=== PATIENT | female | born 1955 | race American Indian/Alaskan Native ===

== ENCOUNTER 2019-10-12 14:23 | Inpatient (IN) | payer OTHER ==
[2019-10-12] MEDS ORDERED: methylPREDNISolone Sod Succinate 125 MG/2 ML INJ IV ONE (14:33)
[2019-10-12] MEDS ORDERED: MAGNESIUM SULFATE 2 GM/50 ML BAG IV ONE (14:33)
[2019-10-12] MEDS ORDERED: IPRATROPIUM/ALBUTEROL SULFATE 3 ML AMPUL.NEB IH ONE (14:33)
--- NOTE | 2019-10-12 15:05 | XRay Report ---
CHEST 1 VIEW INDICATION: hypertension. COMPARISON: None. FINDINGS: Support devices: None. Heart: Normal. Lungs/Pleura: No acute pulmonary or pleural findings. IMPRESSION: 1. No acute findings. Signer Name: Kirby Mayo MD Signed: 10/12/2019 3:01 PM Workstation Name: [id number]
[2019-10-12 15:15] LABS: ABG Base Excess 2.2 mmol/L (-2.0-3.0); ABG HCO3 28.6 mmol/L (20.0-26.0); ABG Methemoglobin 0.7 % (0.0-1.5); ABG Oxygen Saturation 99.1 % (95.0-99.0); ABG PCO2 51.4 mm Hg; ABG PH 7.363 pH Units (7.350-7.450); ABG PO2 181.5 mm Hg (80.0-90.0)
--- NOTE | 2019-10-12 15:20 | Emergency Department Report ---
ED General Adult HPI - General Chief complaint: Adult Asthma Stated complaint: ASTHMA Time Seen by Provider: 10/12/19 14:33 Source: patient Mode of arrival: Ambulatory Limitations: No Limitations - History of Present Illness Initial comments: This is a 64-year old female who has had chronic lung disease for only about 2 years. She seems to be stating although her history is a bit limited due to her respiratory distress that she was intubated more than a year ago at [facility]. She states that she is only had wheezing for about 2 years. Recently she has not been responding to home nebs. She is on 2 L of home oxygen. She states that she was referred to a architect naval by [facility] but could not afford ongoing care. She does not know specifically if she has sarcoid or another type of chronic lung disease. She states she has never been a smoker. She has no prior history of asthma. She is not currently on steroids. She has a history of hypertension and states she is on lisinopril and 2 other medicines. She does not report any history of heart disease. Patient does report to me that she was diagnosed as having COVID infection in August. She states she was never hospitalized. -: Gradual, hour(s) Severity scale (0 -10): 0 Associated Symptoms: denies other symptoms, cough, shortness of breath Treatments Prior to Arrival: other (Home nebs) - Related Data Allergies Allergy/AdvReac Type Severity Reaction Status Date / Time No Known Allergies Allergy Unverified 10/12/19 14:23 ED Review of Systems ROS: Stated complaint: ASTHMA Other details as noted in HPI Constitutional: denies: chills, fever Eyes: denies: eye pain, eye discharge, vision change ENT: denies: ear pain, throat pain Respiratory: cough (States white mucus), shortness of breath, wheezing Cardiovascular: denies: chest pain, palpitations Endocrine: no symptoms reported Gastrointestinal: denies: abdominal pain, nausea, diarrhea Genitourinary: denies: urgency, dysuria, discharge Musculoskeletal: denies: back pain, joint swelling, arthralgia Skin: denies: rash, lesions Neurological: denies: headache, weakness, paresthesias Psychiatric: denies: anxiety, depression Hematological/Lymphatic: denies: easy bleeding, easy bruising ED Past Medical Hx - Past Medical History Hx Asthma: Yes - Surgical History Past Surgical History?: No - Social History Smoking Status: Never Smoker Substance Use Type: None ED Physical Exam - General Limitations: Physical Limitation General appearance: cachectic (Somewhat), other (Mild to moderate respiratory distress) - Head Head exam: Present: atraumatic, normocephalic - Eye Eye exam: Present: normal appearance. Absent: scleral icterus - ENT ENT exam: Present: mucous membranes moist - Neck Neck exam: Present: normal inspection - Respiratory Respiratory exam: Present: wheezes (Bilateral), accessory muscle use, decreased breath sounds. Absent: respiratory distress - Cardiovascular Cardiovascular Exam: Present: regular rate, normal rhythm. Absent: systolic murmur, diastolic murmur, rubs, gallop - GI/Abdominal GI/Abdominal exam: Present: soft, normal bowel sounds. Absent: distended, tenderness, guarding, rebound, rigid - Extremities Exam Extremities exam: Present: normal inspection. Absent: pedal edema, joint swelling, calf tenderness - Back Exam Back exam: Present: normal inspection - Neurological Exam Neurological exam: Present: alert, oriented X3, CN II-XII intact. Absent: motor sensory deficit - Psychiatric Psychiatric exam: Present: normal mood, anxious (Mildly) - Skin Skin exam: Present: warm, dry, intact, normal color. Absent: rash ED Course Vital Signs 10/12/19 10/12/19 10/12/19 14:31 14:46 15:00 Pulse Rate 122 H 107 H Respiratory 26 H 18 Rate Blood Pressure 114/65 Blood Pressure 150/77 [Left] O2 Sat by Pulse 100 100 98 Oximetry 10/12/19 15:31 Pulse Rate 108 H Respiratory 21 Rate Blood Pressure 114/65 Blood Pressure [Left] O2 Sat by Pulse 100 Oximetry - Reevaluation(s) Reevaluation #1: Patient improving with nebs. 10/12/19 15:26 Reevaluation #2: Blood gas consistent with hypercapnic respiratory failure PCO2 of 51 pH of 7.36 PO2 182 on supplemental FiO2 approximately 40%. Patient will be placed on BiPAP. She is improving with nebs however. I would be concerned that she would be at risk for tiring. Patient states that she has never been on CPAP. However she tells me that she thinks she might need a "mask". 10/12/19 15:28 Reevaluation #3: Patient with remarkable improvement. BiPAP was ordered. However at this point it does not look on reassessment it is necessary now. I will leave it as a PRN order. I do think the patient will need BiPAP or CPAP at night. We will leave it up to the hospitalist. She will be admitted. 10/12/19 15:34 ED Medical Decision Making - Lab Data Result diagrams: 10/12/19 15:07 Laboratory Results - last 24 hr 10/12/19 10/12/19 14:50 15:07 WBC 9.3 RBC 4.81 Hgb 14.7 H Hct 45.0 H MCV 94 MCH 31 MCHC 33 RDW 13.6 Plt Count 345 Lymph % (Auto) 18.3 [place] % (Auto) 9.1 H Eos % (Auto) 5.3 H Baso % (Auto) 0.5 Lymph # 1.7 [place] # 0.9 H Eos # 0.5 H Baso # 0.0 Seg Neutrophils % 66.8 Seg Neutrophils # 6.2 ABG pH 7.363 ABG pCO2 51.4 ABG pO2 181.5 H ABG HCO3 28.6 H ABG O2 Saturation 99.1 H ABG O2 Content 20.1 ABG Base Excess 2.2 ABG Hemoglobin 14.5 ABG Carboxyhemoglobin 1.9 ABG Methemoglobin 0.7 Oxyhemoglobin 96.6 FiO2 40 Other labs pending. Defer to hospitalist - EKG Data -: EKG Interpreted by Me EKG shows normal: sinus rhythm, axis, intervals, QRS complexes, ST-T waves Rate: tachycardia - EKG Data Interpretation: no acute changes (No acute ischemic changes) - Radiology Data Radiology results: report reviewed (Chest x-ray no acute process), image reviewed Laboratory Results - last 24 hr 10/12/19 14:50 ABG pH 7.363 ABG pCO2 51.4 ABG pO2 181.5 H ABG HCO3 28.6 H ABG O2 Saturation 99.1 H ABG O2 Content 20.1 ABG Base Excess 2.2 ABG Hemoglobin 14.5 ABG Carboxyhemoglobin 1.9 ABG Methemoglobin 0.7 Oxyhemoglobin 96.6 FiO2 40 Critical Care Time: Yes Critical care time in (mins) excluding proc time.: 45 Critical care attestation.: If time is entered above; I have spent that time in minutes in the direct care of this critically ill patient, excluding procedure time. ED Disposition Clinical Impression: Status asthmaticus Qualifiers: Asthma severity: moderate Asthma persistence: persistent Qualified Code(s): J45.42 - Moderate persistent asthma with status asthmaticus Hypercapnic respiratory failure Qualifiers: Chronicity: acute on chronic Qualified Code(s): J96.22 - Acute and chronic respiratory failure with hypercapnia Disposition: OP ADMIT IP TO THIS HOSP Is pt being admited?: Yes Does the pt Need Aspirin: Yes Condition: Stable
[2019-10-12] MEDS ORDERED: SODIUM CHLORIDE 0.9% 1000 ML 1,000 ML IV ONE (15:27)
[2019-10-12] MEDS ORDERED: ALBUTEROL 2.5 MG/3 ML NEBU IH ONE (15:27)
[2019-10-12] MEDS ORDERED: ASPIRIN 81 MG TAB CHEW PO ONE (15:29)
[2019-10-12 15:52] LABS: Basophils % (Auto) 0.5 % (0.0-1.8); Eosinophils # (Auto) 0.5 K/mm3 (0.0-0.4); Eosinophils % (Auto) 5.3 % (0.0-4.3); Hemoglobin 14.7 gm/dl (10.1-14.3); Lymphocytes # (Auto) 1.7 K/mm3 (1.2-5.4); Lymphocytes % (Auto) 18.3 % (13.4-35.0); Mean Corpuscular HGB Conc 33 % (30-34); Mean Corpuscular Volume 94 fl (79-97); Monocytes # (Auto) 0.9 K/mm3 (0.0-0.8); Monocytes % (Auto) 9.1 % (0.0-7.3); Platelet Count 345 K/mm3 (140-440); Red Blood Count 4.81 M/mm3 (3.65-5.03); Red Cell Distribution Width 13.6 % (13.2-15.2)
[2019-10-12] MEDS ORDERED: AZITHROMYCIN 500 MG in SODIUM CHLORIDE 0.9% 250ML 250 ML IV ONE (16:00)
[2019-10-12 16:10] LABS: Alanine Aminotransferase 12 units/L (7-56); Albumin 4.2 g/dL (3.9-5); BUN/Creatinine Ratio 17; Bilirubin,Direct < 0.2 mg/dL (0-0.2); Blood Urea Nitrogen 15 mg/dL (7-17); Calcium 9.9 mg/dL (8.4-10.2); Hemolysis Index 7
[2019-10-12] MEDS ORDERED: DOCUSATE SODIUM 100 MG CAP PO PRN (16:10)
[2019-10-12] MEDS ORDERED: ONDANSETRON 4 MG/2 ML INJ IV PRN (16:10)
[2019-10-12 16:13] LABS: INR 1.02 (0.87-1.13); Partial Thromboplastin Time 23.7 Sec. (24.2-36.6)
--- NOTE | 2019-10-12 16:59 | Progress Note ---
Subjective Date of service: 10/12/19 Interval history: Mandi Roberto is a 64-year old female who has history of asthma for the past 10 years and history of hypertension. Presents to the ED with complaints of worsening shortness of breath and severe dry cough for the past 2 days.. Recently she has not been responding to home nebulization treatments. She is on 2 L of home oxygen. She states that she was referred to a devil dog by [facility] but could not afford ongoing care. She stated that she was on respirator 1 year ago at [facility]. At the time of my evaluation patient is on BiPAP. She states that she quit smoking more than 20 years ago. 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 She was first diagnosed with asthma about 10 years ago. she has a history of hypertension and states she is on lisinopril and 2 other medicines. She does not report any history of heart disease. In the ED patient was found to be severely dyspneic was given continuous neb treatments without significant improvement, was placed on BiPAP machine and she is being admitted for status asthmaticus Objective - Constitutional Vitals: Vital Signs - 12hr 10/12/19 10/12/19 10/12/19 14:31 14:46 15:00 Pulse Rate 122 H 107 H Respiratory 26 H 18 Rate Blood Pressure 114/65 Blood Pressure 150/77 [Left] O2 Sat by Pulse 100 100 98 Oximetry 10/12/19 10/12/19 15:31 16:09 Pulse Rate 108 H 96 H Respiratory 21 17 Rate Blood Pressure 114/65 Blood Pressure [Left] O2 Sat by Pulse 100 100 Oximetry - Labs CBC & Chem 7: 10/12/19 15:07 10/12/19 15:07 Labs: Abnormal lab results 10/12/19 10/12/19 10/12/19 Range/Units 14:50 15:07 15:07 Hgb 14.7 H (10.1-14.3) gm/dl Hct 45.0 H (30.3-42.9) % [place] % (Auto) 9.1 H (0.0-7.3) % Eos % (Auto) 5.3 H (0.0-4.3) % [place] # 0.9 H (0.0-0.8) K/mm3 Eos # 0.5 H (0.0-0.4) K/mm3 APTT (24.2-36.6) Sec. ABG pO2 181.5 H (80.0-90.0) mm Hg ABG HCO3 28.6 H (20.0-26.0) mmol/L ABG O2 Saturation 99.1 H (95.0-99.0) % Glucose 116 H (65-100) mg/dL Magnesium (1.7-2.3) mg/dL 10/12/19 10/12/19 Range/Units 15:07 15:07 Hgb (10.1-14.3) gm/dl Hct (30.3-42.9) % [place] % (Auto) (0.0-7.3) % Eos % (Auto) (0.0-4.3) % [place] # (0.0-0.8) K/mm3 Eos # (0.0-0.4) K/mm3 APTT 23.7 L (24.2-36.6) Sec. ABG pO2 (80.0-90.0) mm Hg ABG HCO3 (20.0-26.0) mmol/L ABG O2 Saturation (95.0-99.0) % Glucose (65-100) mg/dL Magnesium 3.90 H (1.7-2.3) mg/dL HEART Score - HEART Score Troponin: Troponin T < 0.010 ng/mL (0.00-0.029) 10/12/19 15:07
[2019-10-12] MEDS ORDERED: methylPREDNISolone Sod Suc 40 MG in SODIUM CHLORIDE 0.9% 100 ML IV SCH (17:00)
[2019-10-12] MEDS ORDERED: D5W/0.45% NACL 1,000 ML IV SCH (17:00)
--- NOTE | 2019-10-12 17:06 | History and Physical Report ---
History of Present Illness Date of examination: 10/12/19 Date of admission: 10/12/19 15:29 Chief complaint: Worsening cough and shortness of breath for 2 days History of present illness: Mandi Roberto is a 64-year old female who has history of asthma for the past 10 years and history of hypertension. Presents to the ED with complaints of worsening shortness of breath and severe dry cough for the past 2 days.. Recently she has not been responding to home nebulization treatments. She is on 2 L of home oxygen. She states that she was referred to a information engineer by [facility] but could not afford ongoing care. She stated that she was on respirator 1 year ago at [facility]. At the time of my evaluation patient is on BiPAP. She states that she quit smoking more than 20 years ago. 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 She was first diagnosed with asthma about 10 years ago. she has a history of hypertension and states she is on lisinopril and 2 other medicines. She does not report any history of heart disease. In the ED patient was found to be severely dyspneic was given continuous neb treatments without significant improvement, was placed on BiPAP machine and she is being admitted for status asthmaticus Past History Past Medical History: hypertension, other (Asthma) Past Surgical History: No surgical history Social history: no significant social history, smoking (She quit smoking more than 20 years ago) Family history: diabetes, hypertension Medications and Allergies Allergies Allergy/AdvReac Type Severity Reaction Status Date / Time No Known Allergies Allergy Unverified 10/12/19 14:23 Active Meds: Active Medications Acetaminophen (Tylenol) 650 mg PO Q6H PRN PRN Reason: Pain MILD(1-3)/Fever >100.5/PIPER Albuterol/Ipratropium (Duoneb *Not For Prn Use*) 1 ampul IH Q4HRT DAYO Arformoterol Tartrate (Brovana Nebu) 15 mcg IH Q12HRT DAYO Budesonide (Pulmicort) 0.5 mg IH Q12HRT DAYO Docusate Sodium (Colace) 100 mg PO BID PRN PRN Reason: Constipation Heparin Sodium (Porcine) (Heparin) 5,000 unit SUB-Q Q8HR DAYO Sodium Chloride (Nacl 0.9% 1000 Ml) 1,000 mls @ 125 mls/hr IV ONCE ONE Stop: 10/12/19 23:26 Last Admin: 10/12/19 16:05 Dose: 125 mls/hr Documented by: Dextrose/Sodium Chloride (D5/0.45ns) 1,000 mls @ 75 mls/hr IV DIRECT DAYO Methylprednisolone Sodium Succinate 40 mg/ Sodium Chloride 100 mls @ 200 mls/hr IV Q8H [facility] Ondansetron HCl (Zofran) 4 mg IV Q8H PRN PRN Reason: Nausea And Vomiting Pantoprazole Sodium (Protonix) 40 mg PO DAILY DAYO Sodium Chloride (Sodium Chloride Flush Syringe 10 Ml) 10 ml IV BID DAYO Sodium Chloride (Sodium Chloride Flush Syringe 10 Ml) 10 ml IV PRN PRN PRN Reason: LINE FLUSH Review of Systems Constitutional: no weight loss, no fever, no chills, no weakness Ears, nose, mouth and throat: no ear pain, no sore throat, no headache Cardiovascular: shortness of breath, high blood pressure, no chest pain, no orthopnea, no palpitations Respiratory: cough (Dry), shortness of breath, no congestion Gastrointestinal: no abdominal pain, no nausea, no vomiting, no diarrhea, no constipation, no melena Menstruation: postmenopausal Rectal: no pain Musculoskeletal: no neck stiffness, no low back pain Integumentary: no rash Neurological: no head injury Psychiatric: no anxiety, no depression Exam - Constitutional Vitals: Temp Pulse Resp BP Pulse Ox 96 H 17 114/65 100 10/12/19 16:09 10/12/19 16:09 10/12/19 15:31 10/12/19 16:09 General appearance: Present: mild distress, well-nourished - EENT Eyes: Present: PERRL, EOM intact ENT: hearing intact, clear oral mucosa - Neck Neck: Present: supple, normal ROM - Respiratory Respiratory effort: labored Respiratory: bilateral: diminished, negative: rales, rhonchi - Cardiovascular Rhythm: regular Heart Sounds: Present: S1 & S2 (Tachycardia) - Extremities Extremities: No edema - Abdominal General gastrointestinal: Present: soft, non-tender. Absent: hepatomegaly, splenomegaly - Rectal Rectal Exam: deferred - Integumentary Integumentary: Present: clear - Musculoskeletal Musculoskeletal: strength equal bilaterally - Psychiatric Psychiatric: appropriate mood/affect - Neurologic Neurologic: CNII-XII intact, no focal deficits HEART Score - HEART Score Troponin: Troponin T < 0.010 ng/mL (0.00-0.029) 10/12/19 15:07 Results - Labs CBC & Chem 7: 10/12/19 15:07 10/12/19 15:07 Labs: Abnormal lab results 10/12/19 10/12/19 10/12/19 Range/Units 14:50 15:07 15:07 Hgb 14.7 H (10.1-14.3) gm/dl Hct 45.0 H (30.3-42.9) % [place] % (Auto) 9.1 H (0.0-7.3) % Eos % (Auto) 5.3 H (0.0-4.3) % [place] # 0.9 H (0.0-0.8) K/mm3 Eos # 0.5 H (0.0-0.4) K/mm3 APTT (24.2-36.6) Sec. ABG pO2 181.5 H (80.0-90.0) mm Hg ABG HCO3 28.6 H (20.0-26.0) mmol/L ABG O2 Saturation 99.1 H (95.0-99.0) % Glucose 116 H (65-100) mg/dL Magnesium (1.7-2.3) mg/dL 10/12/19 10/12/19 Range/Units 15:07 15:07 Hgb (10.1-14.3) gm/dl Hct (30.3-42.9) % [place] % (Auto) (0.0-7.3) % Eos % (Auto) (0.0-4.3) % [place] # (0.0-0.8) K/mm3 Eos # (0.0-0.4) K/mm3 APTT 23.7 L (24.2-36.6) Sec. ABG pO2 (80.0-90.0) mm Hg ABG HCO3 (20.0-26.0) mmol/L ABG O2 Saturation (95.0-99.0) % Glucose (65-100) mg/dL Magnesium 3.90 H (1.7-2.3) mg/dL Assessment and Plan - Patient Problems (1) Status asthmaticus Current Visit: Yes Status: Acute Qualifiers: Asthma severity: moderate Asthma persistence: persistent Qualified C ode(s): J45.42 - Moderate persistent asthma with status asthmaticus Plan to address problem: Patient failed aggressive continuous neb treatments with albuterol solution We will admit the patient to IMCU as the patient is on BiPAP Start the patient on intravenous steroids, aggressive neb treatments with DuoNeb solution, Pulmicort and Brovana solutions Chest x-ray reviewed We will consult information engineer Empiric IV antibiotic although there is no focus of infection (2) Hypertension Current Visit: Yes Status: Chronic Qualifiers: Hypertension type: essential hypertension Qualified Code(s): I10 - Essential (primary) hypertension Plan to address problem: Patient is unclear about her medications We will start the patient on lisinopril for now and monitor blood pressure (3) Respiratory failure with hypoxia and hypercapnia Current Visit: Yes Status: Acute Plan to address problem: Patient has history of being on ventilator 1 year ago ABG on 40% FiO2 results reviewed Continue BiPAP for now and hopefully to be weaned off Pulmonary consult Aggressive neb treatments and IV steroids
[2019-10-12] MEDS: ARFORMOTEROL 15 MCG/2 ML NEBU IH SCH (20:13)
[2019-10-12] MEDS: IPRATROPIUM/ALBUTEROL SULFATE 3 ML AMPUL.NEB IH SCH ×2 (20:14→23:01)
[2019-10-12] MEDS: BUDESONIDE 0.5 MG/2 ML NEBU IH SCH (20:14)
[2019-10-12] MEDS: guaiFENesin 100 MG/5 ML ORAL LIQD PO PRN (23:25)
[2019-10-12] MEDS: TEMAZEPAM 15 MG CAP PO PRN (23:25)
[2019-10-12] MEDS: HEPARIN 5,000 UNIT/1 ML VIAL SUB-Q SCH (23:25)
[2019-10-12] MEDS: methylPREDNISolone Sod Succinate 40 MG/1 ML INJ IV SCH (23:25)
[2019-10-13] MEDS: IPRATROPIUM/ALBUTEROL SULFATE 3 ML AMPUL.NEB IH SCH ×6 (04:12→20:22)
[2019-10-13 05:27] LABS: Hematocrit 40.3 % (30.3-42.9); Hemoglobin 13.1 gm/dl (10.1-14.3); Mean Corpuscular HGB Conc 33 % (30-34); Mean Corpuscular Volume 94 fl (79-97); Platelet Count 300 K/mm3 (140-440); Red Blood Count 4.31 M/mm3 (3.65-5.03); Red Cell Distribution Width 13.5 % (13.2-15.2)
[2019-10-13 05:48] LABS: Blood Urea Nitrogen 21 mg/dL (7-17); Calcium 9.1 mg/dL (8.4-10.2); Hemolysis Index 5
[2019-10-13 06:00] LABS: BUN/Creatinine Ratio 30
[2019-10-13] MEDS: HEPARIN 5,000 UNIT/1 ML VIAL SUB-Q SCH ×3 (06:26→22:45)
[2019-10-13] MEDS: methylPREDNISolone Sod Succinate 40 MG/1 ML INJ IV SCH ×3 (06:26→22:46)
[2019-10-13 08:18] LABS: Anisocytosis Few; Basophils % (Manual) 0 % (0.0-1.8); Eosinophils % (Manual) 0 % (0.0-4.3); Monocytes % (Manual) 0 % (0.0-7.3); Total Cells Counted 100
[2019-10-13 08:19] LABS: Ovalocytes Few; Platelet Estimate Consistent w Auto; Poikilocytosis Few
[2019-10-13] MEDS: PANTOPRAZOLE 40 MG TAB PO SCH (09:18)
--- NOTE | 2019-10-13 10:32 | Progress Note ---
Assessment and Plan Assessment and plan: Mandi Roberto is a 64-year old female who has history of asthma for the past 10 years and history of hypertension. Presents to the ED with complaints of worsening shortness of breath and severe dry cough for the past 2 days. Recently she has not been responding to home nebulization treatments. She is on 2 L of home oxygen. She states that she was referred to a information assurance engineer by [facility] but could not afford ongoing care. She stated that she was on respirator 1 year ago at [facility]. At the time of my evaluation patient is on BiPAP. She states that she quit smoking more than 20 years ago. 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 She was first diagnosed with asthma about 10 years ago. she has a history of hypertension and states she is on lisinopril and 2 other medicines. She does not report any history of heart disease. In the ED patient was found to be severely dyspneic was given continuous neb treatments without significant improvement, was placed on BiPAP machine and she is being admitted for status asthmaticus 10/12: Patient seen and examined today clinically improving. Still with significant shortness of breath following speaking and goes into a coughing spell. We will continue steroids. Await pulmonary input. Will keep in IMCU for now unless otherwise stated by information assurance engineer. Discussed with excellent nursing staff the patient has today. Acute respiratory hypoxic and hypercapnic failure secondary to status asthma ticus Asthma with acute exacerbation Prior history of intubation Hypertension Plan Continue patient on intravenous steroids, aggressive neb treatments with DuoNeb solution, Pulmicort and Brovana solutions Chest x-ray reviewed information assurance engineer consulted Empiric IV antibiotic although there is no focus of infection DVT and GI prophylaxis Plan of care discussed with the patient by nursing staff. History Interval history: Patient seen and examined reports some improvement although still with expiratory wheeze and speech induced coughing spells. Hospitalist Physical - Physical exam Narrative exam: VITAL SIGNS: Reviewed. GENERAL: The patient appears normally developed still with mild respiratory distress on exertion, Vital signs as documented. HEAD: No signs of head trauma. EYES: Pupils are equal. Extraocular motions intact. EARS: Hearing grossly intact. MOUTH: Oropharynx is normal. NECK: No adenopathy, no JVD. CHEST: Chest with expiratory wheezing breath sounds bilaterally. No rales, or rhonchi. CARDIAC: Regular rate and rhythm. S1 and S2, without murmurs, gallops, or rubs. VASCULAR: No Edema. Peripheral pulses normal and equal in all extremities. ABDOMEN: Soft, non tender and non distended. No rebound or guarding, and no masses palpated. Bowel Sounds normal. MUSCULOSKELETAL: Good range of motion of all major joints. Extremities without clubbing, cyanosis or edema. NEUROLOGIC EXAM: Alert and oriented x 3 No focal sensory or strength d eficits. Speech normal except followed by intermittent coughing spell. Follows commands. PSYCHIATRIC: Mood normal. SKIN: detail exam as documented in skin assessment - Constitutional Vitals: Temp Pulse Resp BP Pulse Ox 97.7 F 94 H 17 140/61 99 10/13/19 08:00 10/13/19 08:00 10/13/19 08:00 10/13/19 08:00 10/13/19 08:00 General appearance: Present: mild distress, well-nourished HEART Score - HEART Score Troponin: Troponin T < 0.010 ng/mL (0.00-0.029) 10/12/19 15:07 Results - Labs CBC & Chem 7: 10/13/19 04:29 10/13/19 04:29 Labs: Laboratory Last Values WBC 7.5 K/mm3 (4.5-11.0) 10/13/19 04:29 RBC 4.31 M/mm3 (3.65-5.03) 10/13/19 04:29 Hgb 13.1 gm/dl (10.1-14.3) 10/13/19 04:29 Hct 40.3 % (30.3-42.9) 10/13/19 04:29 MCV 94 fl (79-97) 10/13/19 04:29 MCH 30 pg (28-32) 10/13/19 04:29 MCHC 33 % (30-34) 10/13/19 04:29 RDW 13.5 % (13.2-15.2) 10/13/19 04:29 Plt Count 300 K/mm3 (140-440) 10/13/19 04:29 Lymph % (Auto) 18.3 % (13.4-35.0) 10/12/19 15:07 [place] % (Auto) 9.1 % (0.0-7.3) H 10/12/19 15:07 Eos % (Auto) 5.3 % (0.0-4.3) H 10/12/19 15:07 Baso % (Auto) 0.5 % (0.0-1.8) 10/12/19 15:07 Lymph # 1.7 K/mm3 (1.2-5.4) 10/12/19 15:07 [place] # 0.9 K/mm3 (0.0-0.8) H 10/12/19 15:07 Eos # 0.5 K/mm3 (0.0-0.4) H 10/12/19 15:07 Baso # 0.0 K/mm3 (0.0-0.1) 10/12/19 15:07 Add Manual Diff Complete 10/13/19 04:29 Total Counted 100 10/13/19 04:29 Seg Neutrophils % Patent Clerk 10/13/19 04:29 Seg Neuts % (Manual) 96.0 % (40.0-70.0) H 10/13/19 04:29 Band Neutrophils % 0 % 10/13/19 04:29 Lymphocytes % (Manual) 4.0 % (13.4-35.0) L 10/13/19 04:29 Reactive Lymphs % (Man) 0 % 10/13/19 04:29 Monocytes % (Manual) 0 % (0.0-7.3) 10/13/19 04:29 Eosinophils % (Manual) 0 % (0.0-4.3) 10/13/19 04:29 Basophils % (Manual) 0 % (0.0-1.8) 10/13/19 04:29 Metamyelocytes % 0 % 10/13/19 04:29 Myelocytes % 0 % 10/13/19 04:29 Promyelocytes % 0 % 10/13/19 04:29 Blast Cells % 0 % 10/13/19 04:29 Nucleated RBC % Not Reportable 10/13/19 04:29 Seg Neutrophils # 6.2 K/mm3 (1.8-7.7) 10/12/19 15:07 Seg Neutrophils # Man 7.2 K/mm3 (1.8-7.7) 10/13/19 04:29 Band Neutrophils # 0.0 K/mm3 10/13/19 04:29 Lymphocytes # (Manual) 0.3 K/mm3 (1.2-5.4) L 10/13/19 04:29 Abs React Lymphs (Man) 0.0 K/mm3 10/13/19 04:29 Monocytes # (Manual) 0.0 K/mm3 (0.0-0.8) 10/13/19 04:29 Eosinophils # (Manual) 0.0 K/mm3 (0.0-0.4) 10/13/19 04:29 Basophils # (Manual) 0.0 K/mm3 (0.0-0.1) 10/13/19 04:29 Metamyelocytes # 0.0 K/mm3 10/13/19 04:29 Myelocytes # 0.0 K/mm3 10/13/19 04:29 Promyelocytes # 0.0 K/mm3 10/13/19 04:29 Blast Cells # 0.0 K/mm3 10/13/19 04:29 WBC Morphology Not Reportable 10/13/19 04:29 Hypersegmented Neuts Not Reportable 10/13/19 04:29 Hyposegmented Neuts Not Reportable 10/13/19 04:29 Hypogranular Neuts Not Reportable 10/13/19 04:29 Smudge Cells Not Reportable 10/13/19 04:29 Toxic Granulation Not Reportable 10/13/19 04:29 Toxic Vacuolation Not Reportable 10/13/19 04:29 Dohle Bodies Not Reportable 10/13/19 04:29 Pelger-Huet Anomaly Not Reportable 10/13/19 04:29 Theresa Rods Not Reportable 10/13/19 04:29 Platelet Estimate Consistent w auto 10/13/19 04:29 Clumped Platelets Not Reportable 10/13/19 04:29 Plt Clumps, EDTA Not Reportable 10/13/19 04:29 Large Platelets Not Reportable 10/13/19 04:29 Giant Platelets Not Reportable 10/13/19 04:29 Platelet Satelliting Not Reportable 10/13/19 04:29 Plt Morphology Comment Not Reportable 10/13/19 04:29 RBC Morphology Not Reportable 10/13/19 04:29 Dimorphic RBCs Not Reportable 10/13/19 04:29 Polychromasia Not Reportable 10/13/19 04:29 Hypochromasia Not Reportable 10/13/19 04:29 Poikilocytosis Few 10/13/19 04:29 Anisocytosis Few 10/13/19 04:29 Microcytosis Not Reportable 10/13/19 04:29 Macrocytosis Not Reportable 10/13/19 04:29 Spherocytes Not Reportable 10/13/19 04:29 Pappenheimer Bodies Not Reportable 10/13/19 04:29 Sickle Cells Not Reportable 10/13/19 04:29 Target Cells Not Reportable 10/13/19 04:29 Tear Drop Cells Not Reportable 10/13/19 04:29 Ovalocytes Few 10/13/19 04:29 Helmet Cells Not Reportable 10/13/19 04:29 Jay-Axson Bodies Not Reportable 10/13/19 04:29 King Rings Not Reportable 10/13/19 04:29 Kevin Cells Not Reportable 10/13/19 04:29 Bite Cells Not Reportable 10/13/19 04:29 Crenated Cell Not Reportable 10/13/19 04:29 Elliptocytes Not Reportable 10/13/19 04:29 Acanthocytes (Spur) Not Reportable 10/13/19 04:29 Rouleaux Not Reportable 10/13/19 04:29 Hemoglobin C Crystals Not Reportable 10/13/19 04:29 Schistocytes Not Reportable 10/13/19 04:29 Malaria parasites Not Reportable 10/13/19 04:29 Akhil Bodies Not Reportable 10/13/19 04:29 Hem Pathologist Commnt No 10/13/19 04:29 PT 13.6 Sec. (12.2-14.9) 10/12/19 15:07 INR 1.02 (0.87-1.13) 10/12/19 15:07 APTT 23.7 Sec. (24.2-36.6) L 10/12/19 15:07 ABG pH 7.363 pH Units (7.350-7.450) 10/12/19 14:50 ABG pCO2 51.4 mm Hg 10/12/19 14:50 ABG pO2 181.5 mm Hg (80.0-90.0) H 10/12/19 14:50 ABG HCO3 28.6 mmol/L (20.0-26.0) H 10/12/19 14:50 ABG O2 Saturation 99.1 % (95.0-99.0) H 10/12/19 14:50 ABG O2 Content 20.1 (0.0-44) 10/12/19 14:50 ABG Base Excess 2.2 mmol/L (-2.0-3.0) 10/12/19 14:50 ABG Hemoglobin 14.5 gm/dl (12.0-16.0) 10/12/19 14:50 ABG Carboxyhemoglobin 1.9 % (0.0-5.0) 10/12/19 14:50 ABG Methemoglobin 0.7 % (0.0-1.5) 10/12/19 14:50 Oxyhemoglobin 96.6 % (95.0-99.0) 10/12/19 14:50 FiO2 40 % 10/12/19 14:50 Sodium 140 mmol/L (137-145) 10/13/19 04:29 Potassium 4.4 mmol/L (3.6-5.0) 10/13/19 04:29 Chloride 102.7 mmol/L (98-107) 10/13/19 04:29 Carbon Dioxide 24 mmol/L (22-30) 10/13/19 04:29 Anion Gap 18 mmol/L 10/13/19 04:29 BUN 21 mg/dL (7-17) H 10/13/19 04:29 Creatinine 0.7 mg/dL (0.6-1.2) 10/13/19 04:29 Estimated GFR > 60 ml/min 10/13/19 04:29 BUN/Creatinine Ratio 30 % 10/13/19 04:29 Glucose 160 mg/dL (65-100) H 10/13/19 04:29 Calcium 9.1 mg/dL (8.4-10.2) 10/13/19 04:29 Magnesium 3.90 mg/dL (1.7-2.3) H 10/12/19 15:07 Total Bilirubin 0.40 mg/dL (0.1-1.2) 10/12/19 15:07 Direct Bilirubin < 0.2 mg/dL (0-0.2) 10/12/19 15:07 Indirect Bilirubin 0.2 mg/dL 10/12/19 15:07 AST 19 units/L (5-40) 10/12/19 15:07 ALT 12 units/L (7-56) 10/12/19 15:07 Alkaline Phosphatase 83 units/L (35-129) 10/12/19 15:07 Troponin T < 0.010 ng/mL (0.00-0.029) 10/12/19 15:07 NT-Pro-B Natriuret Pep 41.04 pg/mL (0-900) 10/12/19 15:07 Total Protein 7.8 g/dL (6.3-8.2) 10/12/19 15:07 Albumin 4.2 g/dL (3.9-5) 10/12/19 15:07 Albumin/Globulin Ratio 1.2 % 10/12/19 15:07 [place]oah/IV: Voiding Method Toilet IV Catheter Type [Right INT / Saline Lock Antecubital] Active Medications - Current Medications Current Medications: Generic Name Dose Route Start Last Admin Trade Name Freq PRN Reason Stop Dose Admin Acetaminophen 650 mg 10/12/19 16:10 Tylenol PO Q6H PRN Pain MILD(1-3)/Fever >100.5/PIPER Albuterol/Ipratropium 1 ampul 10/12/19 20:00 10/13/19 04:12 Duoneb *Not For Prn Use* IH 1 ampul Q4HRT DAYO Administration Amlodipine Besylate 10 mg 10/14/19 10:00 Amlodipine PO DAILY DAYO Arformoterol Tartrate 15 mcg 10/12/19 20:00 10/12/19 20:13 Brovana Nebu IH 15 mcg Q12HRT DAYO Administration Budesonide 0.5 mg 10/12/19 20:00 10/12/19 20:14 Pulmicort IH 0.5 mg Q12HRT DAYO Administration Docusate Sodium 100 mg 10/12/19 16:10 Colace PO BID PRN Constipation Guaifenesin 200 mg 10/12/19 22:46 10/12/19 23:25 Robitussin PO 200 mg Q4H PRN Administration Cough Heparin Sodium (Porcine) 5,000 unit 10/12/19 22:00 10/13/19 06:26 Heparin SUB-Q 5,000 unit Q8HR DAYO Administration Methylprednisolone Sodium Succinate 40 mg 10/12/19 22:00 10/13/19 06:26 Solu-Medrol IV 40 mg Q8HR DAYO Administration Miscellaneous Medication 10 mg 10/14/19 10:00 Lisinopril PO DAILY DAYO Ondansetron HCl 4 mg 10/12/19 16:10 Zofran IV Q8H PRN Nausea And Vomiting Pantoprazole Sodium 40 mg 10/13/19 10:00 10/13/19 09:18 Protonix PO 40 mg DAILY DAYO Administration Sodium Chloride 10 ml 10/12/19 22:00 10/13/19 09:18 Sodium Chloride Flush Syringe 10 Ml IV 10 ml BID DAYO Administration Sodium Chloride 10 ml 10/12/19 16:10 Sodium Chloride Flush Syringe 10 Ml IV PRN PRN LINE FLUSH Temazepam 15 mg 10/12/19 22:46 10/12/19 23:25 Restoril PO 15 mg QHS PRN Administration Sleep
[2019-10-13] MEDS: BUDESONIDE 0.5 MG/2 ML NEBU IH SCH ×2 (10:44→20:22)
[2019-10-13] MEDS: ARFORMOTEROL 15 MCG/2 ML NEBU IH SCH ×2 (10:45→20:22)
[2019-10-13] MEDS: guaiFENesin 100 MG/5 ML ORAL LIQD PO PRN ×2 (11:15→22:47)
--- NOTE | 2019-10-13 12:59 | Consultation ---
History of Present Illness Consult date: 10/13/19 Requesting physician: MENDEZ SOW Reason for consult: other (asthma exacerbation) History of present illness: 64 y/o female with known asthma, unable to follow up with pulm or obtain medications secondary to funding admitted with acute respiratory failure secondary to asthma exacerbation. Briefly required bipap and has since been weaned off. Currently filling out medicaid paperwork. Diagnosed with asthma 5 years ago. Has been intubated before. Past History Past Medical History: hypertension, other (Asthma) Past Surgical History: No surgical history Social history: no significant social history, smoking (She quit smoking more than 20 years ago) Family history: diabetes, hypertension Medications and Allergies Allergies Allergy/AdvReac Type Severity Reaction Status Date / Time No Known Allergies Allergy Unverified 10/12/19 14:23 Home Medications Medication Instructions Recorded Confirmed Last Taken Type Albuterol Sulfate [Albuterol 0.63% 0.63 mg IH TID PRN 10/12/19 10/12/19 Unknown History NEBS] Albuterol Sulfate [Proair 90 mcg IH PRN 10/12/19 10/12/19 Unknown History Respiclick] Amlodipine Besylate [Norvasc] 10 mg PO DAILY 10/12/19 10/12/19 Unknown History lisinopriL 10 mg PO DAILY 10/12/19 10/12/19 Unknown History Active Meds: Active Medications Acetaminophen (Tylenol) 650 mg PO Q6H PRN PRN Reason: Pain MILD(1-3)/Fever >100.5/PIPER Albuterol/Ipratropium (Duoneb *Not For Prn Use*) 1 ampul IH Q4HRT [facility] Last Admin: 10/13/19 10:45 Dose: 1 ampul Documented by: Amlodipine Besylate (Amlodipine) 10 mg PO DAILY [facility] Arformoterol Tartrate (Brovana Nebu) 15 mcg IH Q12HRT [facility] Last Admin: 10/13/19 10:45 Dose: 15 mcg Documented by: Budesonide (Pulmicort) 0.5 mg IH Q12HRT [facility] Last Admin: 10/13/19 10:44 Dose: 0.5 mg Documented by: Docusate Sodium (Colace) 100 mg PO BID PRN PRN Reason: Constipation Guaifenesin (Robitussin) 200 mg PO Q4H PRN PRN Reason: Cough Last Admin: 10/13/19 11:15 Dose: 200 mg Documented by: Heparin Sodium (Porcine) (Heparin) 5,000 unit SUB-Q Q8HR [facility] Last Admin: 10/13/19 06:26 Dose: 5,000 unit Documented by: Lisinopril (Zestril) 10 mg PO DAILY [facility] Methylprednisolone Sodium Succinate (Solu-Medrol) 40 mg IV Q8HR [facility] Last Admin: 10/13/19 06:26 Dose: 40 mg Documented by: Ondansetron HCl (Zofran) 4 mg IV Q8H PRN PRN Reason: Nausea And Vomiting Pantoprazole Sodium (Protonix) 40 mg PO DAILY [facility] Last Admin: 10/13/19 09:18 Dose: 40 mg Documented by: Sodium Chloride (Sodium Chloride Flush Syringe 10 Ml) 10 ml IV BID [facility] Last Admin: 10/13/19 09:18 Dose: 10 ml Documented by: Sodium Chloride (Sodium Chloride Flush Syringe 10 Ml) 10 ml IV PRN PRN PRN Reason: LINE FLUSH Temazepam (Restoril) 15 mg PO QHS PRN PRN Reason: Sleep Last Admin: 10/12/19 23:25 Dose: 15 mg Documented by: Review of Systems All systems: negative Physical Examination Vital signs: Vital Signs Pulse Ox 100 10/12/19 14:31 General appearance: no acute distress, alert Eyes: non-icteric ENT: oropharynx moist Neck: supple Ascultation: Bilateral: diminished breath sounds, wheezes Percussion: Bilateral: not dull Tactile fremitus: Bilateral: normal Results - Laboratory Findings CBC and BMP: 10/13/19 04:29 10/13/19 04:29 ABG ABG pH 7.363 pH Units (7.350-7.450) 10/12/19 14:50 ABG pCO2 51.4 mm Hg 10/12/19 14:50 ABG pO2 181.5 mm Hg (80.0-90.0) H 10/12/19 14:50 ABG O2 Saturation 99.1 % (95.0-99.0) H 10/12/19 14:50 PT/INR, D-dimer PT 13.6 Sec. (12.2-14.9) 10/12/19 15:07 INR 1.02 (0.87-1.13) 10/12/19 15:07 Abnormal lab findings: Abnormal Labs 10/12/19 10/12/19 10/12/19 14:50 15:07 15:07 Hgb 14.7 H Hct 45.0 H [place] % (Auto) 9.1 H Eos % (Auto) 5.3 H [place] # 0.9 H Eos # 0.5 H Seg Neuts % (Manual) Lymphocytes % (Manual) Lymphocytes # (Manual) APTT ABG pO2 181.5 H ABG HCO3 28.6 H ABG O2 Saturation 99.1 H BUN Glucose 116 H Magnesium 10/12/19 10/12/19 10/13/19 15:07 15:07 04:29 Hgb Hct [place] % (Auto) Eos % (Auto) [place] # Eos # Seg Neuts % (Manual) 96.0 H Lymphocytes % (Manual) 4.0 L Lymphocytes # (Manual) 0.3 L APTT 23.7 L ABG pO2 ABG HCO3 ABG O2 Saturation BUN Glucose Magnesium 3.90 H 10/13/19 04:29 Hgb Hct [place] % (Auto) Eos % (Auto) [place] # Eos # Seg Neuts % (Manual) Lymphocytes % (Manual) Lymphocytes # (Manual) APTT ABG pO2 ABG HCO3 ABG O2 Saturation BUN 21 H Glucose 160 H Magnesium - Diagnostic Findings Chest x-ray: image reviewed Assessment and Plan 64 y/o with asthma exacerbation. 1. Needs CM consult to help with drug assistance. Suggest placing patient on Symbicort 160 2 puffs BID. They have or at least had a drug assistance program. 2. Albuterol tablets are at [facility], can use this if it is more affordable 3. Prednisone taper, would start at 60 and go slow, over 2 weeks time 4. Patient does not need step down anymore, can go to floor 5. Wean FiO2 to off as tolerated. Sats of 88% are acceptable. Will sign off, call if questions.
[2019-10-13] MEDS: ACETAMINOPHEN 325 MG TAB PO PRN (18:20)
[2019-10-13] MEDS: TEMAZEPAM 15 MG CAP PO PRN (22:46)
[2019-10-14] MEDS: IPRATROPIUM/ALBUTEROL SULFATE 3 ML AMPUL.NEB IH SCH ×4 (02:11→13:28)
[2019-10-14] MEDS: guaiFENesin 100 MG/5 ML ORAL LIQD PO PRN ×2 (04:29→12:06)
[2019-10-14] MEDS: ACETAMINOPHEN 325 MG TAB PO PRN (04:37)
[2019-10-14] MEDS: methylPREDNISolone Sod Succinate 40 MG/1 ML INJ IV SCH (05:51)
[2019-10-14] MEDS: HEPARIN 5,000 UNIT/1 ML VIAL SUB-Q SCH (05:51)
[2019-10-14] MEDS: ARFORMOTEROL 15 MCG/2 ML NEBU IH SCH (09:44)
[2019-10-14] MEDS: BUDESONIDE 0.5 MG/2 ML NEBU IH SCH (09:44)
[2019-10-14] MEDS ORDERED: LISINOPRIL 10 MG TAB PO SCH (10:00)
[2019-10-14] MEDS ORDERED: amLODIPine 10 MG TAB PO SCH (10:00)
--- NOTE | 2019-10-14 11:57 | Discharge Summary ---
Providers - Providers Date of Admission: 10/12/19 15:29 Attending physician: MENDEZ SOW MD 10/13/19 16:02 Consult to Case Management [CONS] Routine Services Needed at Discharge: Restaurant Delivery Driver Notified:: CM Additional Physician Instructions: SOCIAL ASSISTANCE WITH DRUG PRICES Hospitalization Condition: Stable Disposition: DC/[place]-06 HOME UNDER HOME HLTH Exam - Constitutional Vitals: Temp Pulse Resp BP Pulse Ox 97.7 F 98 H 16 122/60 98 10/14/19 06:06 10/14/19 09:44 10/14/19 09:44 10/14/19 06:06 10/14/19 09:55 Plan Activity: advance as tolerated, fall precautions Diet: low fat Special Instructions: record daily weights, smoking cessation, home oxygen via (nasal cannula @ 2 liters per minute) Follow up with: MAXIMILIAN RUEDA [Other] - 7 Days NATALIE GIORDANO MD [Staff Physician] - 7 Days Prescriptions: Albuterol Sulfate [Albuterol 0.63% NEBS] 0.63 mg IH TID PRN #90 PRN Reason: Wheezing predniSONE [Deltasone] 10 mg PO .TAPER #48 tab Budesonide/Formoterol Fumarate [Symbicort 160-4.5 Mcg Inhaler] 10.2 gm IH BID #1 hfa.aer.[email or web address]
[2019-10-14] MEDS: PANTOPRAZOLE 40 MG TAB PO SCH (12:06)
[2019-10-14 12:11] VITALS: BP 137/69
== END 2019-10-14 15:58 | disposition home health service (06) | DRG 189 ==
LOC: ED 14:23 → 4A 15:29 → IMCU 16:25 → 3A 10-13 21:00
PROVIDERS: ADMIT Internal Medicine Cardiovascular Disease; ATTEND Internal Medicine
PROC: 4A033R1 Measurement of Arterial Saturation, Peripheral, Percutaneous Approach (ICD-10-PCS; principal; 2019-10-12)
PROC: 5A09357 Assistance with Respiratory Ventilation, Less than 24 Consecutive Hours, Continuous Positive Airway Pressure (ICD-10-PCS; 2019-10-12)
PROC: 5A09357 Assistance with Respiratory Ventilation, Less than 24 Consecutive Hours, Continuous Positive Airway Pressure (ICD-10-PCS; 2019-10-13)
DX: J96.01 Acute respiratory failure with hypoxia (principal); J45.42 Moderate persistent asthma with status asthmaticus; I10 Essential (primary) hypertension; J96.02 Acute respiratory failure with hypercapnia; Z82.49 Family history of ischemic heart disease and other diseases of the circulatory system; Z83.3 Family history of diabetes mellitus; Z87.891 Personal history of nicotine dependence; Z79.899 Other long term (current) drug therapy
CPT/HCPCS: 36415; 71045; 80048; 80076; 82803; 83735; 83880; 84484; 85007; 85025; 85610; 85730; 93005; 94640; 94760; 96365; 96367; 96375; G0378; J0456; J1644; J2405; J2920; J2930; J3475; J7030; J7050